=== PATIENT | female | born 1995 | race Caucasian/White ===

== ENCOUNTER 2016-04-13 00:27 | Emergency (ER) | payer OTHER ==
--- NOTE | 2016-04-13 01:24 | ED ---
Timmy Grover Janilya, scribed for Cecilio Wei MD on 04/13/16 at 0035 . Substance Abuse/Use - HPI Summary HPI Summary: A 20 y/o female is brought to [facility] by her friend for EtOH abuse. Friend states she had excessive amount of EtOH tonight. Friend denies pt took any other substance. LEVEL 5 CAVEAT - INTOXICATION. - History Of Current Complaint Stated Complaint: VOMITING Time Seen by Provider: 04/13/16 00:29 Hx Obtained From: Family/Health Sanitarian - friend Hx From Patient Unobtainable Due To: Altered Mental Status Ingestion History: Type/Name Of Drug - EtOH Overdose Characteristics: Oral Timing Of Abuse: Binge Use Severity Initially: Moderate Severity Currently: Moderate Aggravating Factor(s): Nothing Alleviating Factor(s): Nothing Associated Signs And Symptoms: Negative, Altered Mental Status - Allergies/Home Medications Allergies/Adverse Reactions: Allergies Allergy/AdvReac Type Severity Reaction Status Date / Time No Known Allergies Allergy Verified 11/29/14 02:22 PMH/Surg Hx/FS Hx/Imm Hx Previously Healthy: Yes - Family History Known Family History: Positive: Other - LEVEL 5 CAVEAT: INTOXICATION - Social History Occupation: Student - IC Alcohol Use: Weekly Substance Use Type: Reports: None Smoking Status (MU): Never Smoked Tobacco Review of Systems - ROS Summary Review of Systems Summary: LEVEL 5 CAVEAT - INTOXICATION. Negative: Fever Positive: Other - intoxicated All Other Systems Reviewed And Are Negative: Yes Physical Exam Triage Information Reviewed: Yes Vital Signs On Initial Exam: Initial Vitals Temp Pulse Resp BP Pulse Ox 98.2 F 104 12 126/72 99 04/13/16 00:39 04/13/16 00:39 04/13/16 00:39 04/13/16 00:39 04/13/16 00:39 Vital Signs Reviewed: Yes Appearance: Positive: No Pain Distress - aob, Thin Skin: Positive: Warm Head/Face: Positive: Normal Head/Face Inspection Eyes: Positive: ARSENIO ENT: Positive: Hearing grossly normal Neck: Positive: Supple Respiratory/Lung Sounds: Positive: Clear to Auscultation, Breath Sounds Present Cardiovascular: Positive: Normal Musculoskeletal: Positive: Strength/ROM Intact Neurological: Positive: Sensory/Motor Intact Psychiatric: Positive: Affect/Mood Appropriate Diagnostics - Vital Signs Vital Signs Temp Pulse Resp BP Pulse Ox 04/13/16 00:39 98.2 F 104 12 126/72 99 - Laboratory Lab Results: Lab Results 04/13/16 Range/Units 00:40 Beta HCG, Quant < 0.60 mIU/mL Serum Alcohol Pending Lab Statement: Any lab studies that have been ordered have been reviewed, and results considered in the medical decision making process. Course/Dx - Diagnoses Provider Diagnoses: Alcohol intoxication Discharge - Discharge Plan Condition: Stable Disposition: HOME Patient Education Materials: Alcohol Intoxication (ED) [facility] [Primary Care Provider] - Additional Instructions: Follow up with your primary care provider. The documentation as recorded by the Timmy nash Janilya accurately reflects the service I personally performed and the decisions made by me, Cecilio Wei MD.
[2016-04-13 01:36] LABS: Alcohol 314 mg/dL (<10)
[2016-04-13 08:05] VITALS: BP 112/60
== END 2016-04-13 07:50 | disposition home or self-care (01) ==
LOC: ED 00:27 → MERGE 00:27 → ED 07:50
DX: F10.129 Alcohol abuse with intoxication, unspecified (principal); R11.10 Vomiting, unspecified
CPT/HCPCS: 36415; 80320; 84702; 99282; G0480

== ENCOUNTER 2016-07-19 14:23 | Emergency (ER) | payer OTHER ==
[2016-07-19] MEDS ORDERED: predniSONE TAB* 20 MG PO ONE (16:08)
--- NOTE | 2016-07-19 16:28 | ED ---
Marshall Grover Billy, scribed for Juan Rhoades MD on 07/19/16 at 1611 . Allergic Reaction/Systemic - HPI Summary HPI Summary: Patient is a 20 year-old female coming to [facility] for evaluation of an allergic reaction. Her symptoms have been present intermittently for the last week, worst in the last few days. She reports swelling in her hands and some rashes throughout her extremities, but she denies any chest pain or respiratory involvement. She has had shortness of breath and chest congestion for the last 2 -3 weeks, which has actually improved in the last few days. She admits to having alcohol today during an event at her college. Patient had a surgical yesterday, after which she had abdominal cramping for 1 hour. Since then, she has had no pain, only light vaginal bleeding, no fever, and generally does not feel ill. - History of Current Complaint Chief Complaint: EDAllergicReaction Time Seen by Provider: 07/19/16 15:46 Hx Obtained From: Patient Onset/Duration: Gradual Onset, Started days ago Timing: Intermittent Severity Initially: Moderate Severity Currently: Moderate Location: Diffuse Aggravating Factor(s): Nothing Alleviating Factor(s): Nothing Associated Signs And Symptoms: Positive: Rash, Other: - swelling. Negative: Chest Pain, Difficulty Breathing, Throat Tightening - Allergies/Home Medications Allergies/Adverse Reactions: Allergies Allergy/AdvReac Type Severity Reaction Status Date / Time No Known Allergies Allergy Verified 11/29/14 02:22 PMH/Surg Hx/FS Hx/Imm Hx Endocrine/Hematology History: Denies: Hx Diabetes Cardiovascular History: Denies: Hx Myocardial Infarction Infectious Disease History: No Infectious Disease History: Denies: Traveled Outside the [place] in Last 30 Days - Family History Family History: Patient states that there is no family history of blood clots in her first-degree relatives, although her grandmother, who is a diabetic, has had clots in her legs. - Social History Alcohol Use: Weekly Substance Use Type: Reports: None Smoking Status (MU): Never Smoked Tobacco Review of Systems Negative: Fever Negative: Chest Pain Respiratory: Other - Chest congestion Positive: Shortness Of Breath Positive: Abdominal Pain - Yesterday, after the surgical Genitourinary: Other - light vaginal bleeding Positive: Edema - Hands/fingers. Negative: Myalgia Positive: Rash All Other Systems Reviewed And Are Negative: Yes Physical Exam Triage Information Reviewed: Yes Vital Signs On Initial Exam: Initial Vitals Temp Pulse Resp BP Pulse Ox 98.6 F 114 18 129/79 100 07/19/16 14:40 07/19/16 14:40 07/19/16 14:40 07/19/16 14:40 07/19/16 14:40 Vital Signs Reviewed: Yes Appearance: Positive: Well-Appearing, No Pain Distress Skin: Positive: Warm, Skin Color Reflects Adequate Perfusion, Dry, Other - Blanching rashes on her legs and arms. Head/Face: Positive: Normal Head/Face Inspection Eyes: Positive: EOMI, ARSENIO ENT: Positive: Normal ENT inspection, Pharynx normal Neck: Positive: Supple, Nontender Respiratory/Lung Sounds: Positive: Clear to Auscultation, Breath Sounds Present Cardiovascular: Positive: Tachycardia Abdomen Description: Positive: Nontender, Soft Musculoskeletal: Positive: Strength/ROM Intact, Other - Minimal swelling of her hands bilaterally. Neurological: Positive: Normal, Sensory/Motor Intact, Alert, Oriented to Person Place, Time Psychiatric: Positive: Affect/Mood Appropriate - [place] Coma Scale Coma Scale Total: 15 Diagnostics - Vital Signs Vital Signs Temp Pulse Resp BP Pulse Ox 07/19/16 15:42 96 99 07/19/16 15:40 98.6 F 101 18 115/74 98 07/19/16 14:40 98.6 F 114 18 129/79 100 - Laboratory Lab Statement: Any lab studies that have been ordered have been reviewed, and results considered in the medical decision making process. Allergic Reaction Course/Dx - Course Course Of Treatment: NO CRITICAL CARE TIME Assessment/Plan: NO AIRWAY INVOLVEMENT. RASH STARTED PRIOR TO THE SURGICAL OF 07/18/16. NO FEVERS, NO PELVIC PAIN. SOB IS ASSOCIATED WITH CHEST CONGESTION, IS MILD AND HAS BEEN GOING ON SINCE JUNE. IT HAS IMPROVED THE LAST FEW DAYS, THERE IS NO CHEST PAIN. DISCHARGE HOME STABLE ON PREDNISONE 40MG PO QD X 5 DAYS. PATIENT WILL RETURN IF WORSE OR ANY CONCERNS. - Diagnoses Provider Diagnoses: Allergic reaction Discharge - Discharge Plan Condition: Stable Disposition: HOME Patient Education Materials: Allergies (ED) Referrals: [facility] [Primary Care Provider] - Additional Instructions: FOLLOW UP WITH YOUR DOCTOR. YOU CAN TAKE AN OVER THE COUNTER ANTI ALLERGY MEDICATION SUCH LORATADINE OR ZYRTEC. TAKE PREDNISONE 40MG ONCE A DAY NEEDED FOR THE RASH. RETURN TO THE EMERGENCY DEPARTMENT FOR ANY WORSENING OF YOUR CONDITION; PAIN, FEVER, DIFFICULTY SWALLOWING OR BREATHING, YOU FEEL ILL, YOU FEEL LIKE PASSING OUT OR QUESTIONS OR CONCERNS. The documentation as recorded by the Marshall nash Billy accurately reflects the service I personally performed and the decisions made by me, Juan Rhoades MD.
[2016-07-19 16:36] VITALS: BP 102/69
== END 2016-07-19 16:43 | disposition home or self-care (01) ==
LOC: ED 14:23
DX: L23.9 Allergic contact dermatitis, unspecified cause (principal); T78.40XA Allergy, unspecified, initial encounter; M79.89 Other specified soft tissue disorders; X58.XXXA Exposure to other specified factors, initial encounter; R06.02 Shortness of breath
CPT/HCPCS: 99282; J7512